=== PATIENT | female | born 1985 | race Caucasian/White ===

== ENCOUNTER 2018-05-05 18:05 | Outpatient (CLI) | payer MEDICAID | END 2018-05-05 22:55 | disposition home or self-care (01) | LOC: OBT 18:05 → L-D 18:10 → OBT 22:55 | DX: O26.893 Other specified pregnancy related conditions, third trimester (principal); Z3A.38 38 weeks gestation of pregnancy; R10.2 Pelvic and perineal pain | CPT/HCPCS: 76818 ==

== ENCOUNTER 2018-05-10 22:19 | Inpatient (IN) | payer MEDICAID ==
[2018-05-10] MEDS: LACTATED RINGER'S 1,000 ML IV (22:30)
[2018-05-10] MEDS ORDERED: IBUPROFEN 600 MG TAB PO (22:30)
[2018-05-10] MEDS ORDERED: LIDOCAINE 1% (MPF) 30 ML INJ INJ (22:30)
[2018-05-10] MEDS ORDERED: METHYLERGONOVINE 0.2 MG INJ IM (22:30)
[2018-05-10] MEDS ORDERED: BUTORPHANOL 2 MG INJ IV (22:30)
[2018-05-10] MEDS ORDERED: MISOPROSTOL 200 MCG TAB PR (22:30)
[2018-05-10] MEDS ORDERED: OXYTOCIN 30 UNITS/LR 500 ML IV ×2 (22:30)
[2018-05-10] MEDS ORDERED: CARBOPROST 250 MCG INJ IM (22:30)
[2018-05-10] MEDS: OXYTOCIN 30 UNITS/LR 500 ML IVPB (22:31)
[2018-05-10] MEDS ORDERED: MISOPROSTOL 200 MCG TAB (22:36)
[2018-05-10 22:45] LABS: ADD MAN DIFF? NO
[2018-05-10 22:51] LABS: BASOPHIL # 0.1 10^3/ul (0.0-0.1); BASOPHILS % 0.4 % (0.0-2.0); EOSINOPHILS % 0.1 % (0.0-7.0); HEMATOCRIT 38.7 % (37.0-47.0); HEMOGLOBIN 13.9 g/dl (12.0-16.0); LYMPHOCYTES # 2.3 10^3/ul (0.8-2.9); LYMPHOCYTES % 12.4 % (15.0-51.0); MEAN CORPUSCULAR HEMOGLOBIN 31.6 pg (29.0-33.0); MEAN CORPUSCULAR HGB CONC 35.9 g/dl (32.0-37.0); MONOCYTE # 1.1 10^3/ul (0.3-0.9); MONOCYTES % 6.1 % (0.0-11.0); NEUTROPHIL # 14.7 10^3/ul (1.6-7.5); PLATELET COUNT 246 10^3/UL (140-415); RED CELL DISTRIBUTION WIDTH 12.3 % (11.5-14.5)
[2018-05-10 22:51] LABS: WHITE BLOOD COUNT 18.3 10^3/ul (4.8-10.8)
[2018-05-10] MEDS: OXYTOCIN 30 UNITS/LR 500 ML IV (23:07)
[2018-05-10 23:13] LABS: CBV Base Excess -6.1 mmol/L; CBV COHb 1.9 %; CBV Oxygen Sat 61.8 mmHG; CBV Total Hemglobin 19.6 g/dl; Cord Blood Venous pO2 27.9 mmHG (15.0-45.0); MODE ROOM AIR; Sample Type Blood venous; Site CORD
[2018-05-10 23:14] LABS: AADO2 Cord Arterial 62.2 mmHg; Arterial Cord Blood pCO2 60.7 mmHG (25-50); CBA Base Excess -7.5 mmol/L; CBA COHb 0.6 %; CBA Oxygen Sat 24.3 mmHG; Cord Blood Arterial pO2 14.8 mmHG (15.0-45.0); Fraction OxyHgb Cord Arterial 23.8 %; MODE ROOM AIR; MetHgb Cord Arterial 1.5 %; Site CORD
[2018-05-10 23:15] LABS: INR 0.89; PARTIAL THROMBOPLASTIN TIME 25.7 Sec (23.0-35.0); PROTIME 12.2 Sec (11.9-14.9)
[2018-05-10 23:48] LABS: HEPATITIS B SURFACE ANTIGEN NEGATIVE (NEGATIVE)
[2018-05-11] MEDS ORDERED: LANOLIN HPA 1 PKT TOP
[2018-05-11] MEDS ORDERED: OXYTOCIN 30 UNITS/LR 500 ML IV
[2018-05-11] MEDS ORDERED: CARBOPROST 250 MCG INJ IM
[2018-05-11] MEDS ORDERED: ZOLPIDEM 5 MG TAB PO
[2018-05-11] MEDS ORDERED: NACL 0.9% 3 ML SYG IV
[2018-05-11] MEDS ORDERED: METHYLERGONOVINE 0.2 MG INJ IM
[2018-05-11] MEDS ORDERED: ONDANSETRON 4 MG INJ IV
[2018-05-11] MEDS ORDERED: HYDROCODONE/APAP (5/325) TAB PO
[2018-05-11] MEDS ORDERED: DIPHENHYDRAMINE 25 MG CAP PO
[2018-05-11] MEDS ORDERED: WITCH HAZEL/GLYCERIN PAD PR
[2018-05-11] MEDS: MISOPROSTOL 200 MCG TAB PR (01:12)
[2018-05-11] MEDS: OXYTOCIN 30 UNITS/LR 500 ML IV (02:52)
[2018-05-11] MEDS ORDERED: LIDOCAINE 1% (MPF) 30 ML INJ (05:01)
[2018-05-11 05:48] LABS: HEMATOCRIT 31.2 % (37.0-47.0)
[2018-05-11] MEDS: IBUPROFEN 600 MG TAB PO ×4 (06:07→17:54)
[2018-05-11] MEDS: ACETAMINOPHEN 325 MG TAB PO (06:08)
[2018-05-11] MEDS: SENNA/DOCUSATE NA (8.6MG/50MG) TAB PO ×3 (09:00→21:54)
[2018-05-11 21:21] LABS: RAPID PLASMA REAGIN NONREACTIVE (NR)
[2018-05-12] MEDS: IBUPROFEN 600 MG TAB PO ×3 (00:26→12:23)
[2018-05-12] MEDS: SENNA/DOCUSATE NA (8.6MG/50MG) TAB PO (09:00)
[2018-05-12] MEDS: MEASLES,MUMPS,RUBELLA VACCINE INJ SC* (09:00)
[2018-05-12] MEDS: VARICELLA VACCINE LIVE/PF 1,350 UNIT/0.5 ML ML SC* (09:00)
[2018-05-12] MEDS: DIPHTH/TET/ACEL PERTUSS (ADULT) 0.5 ML VIAL IM* (10:23)
== END 2018-05-12 15:26 | disposition home or self-care (01) | DRG 807 ==
LOC: OBT 22:19 → MS1 05-11 03:16 → L-D 22:20 → OBT 22:25 → L-D 22:25
PROVIDERS: Obstetrics & Gynecology
PROC: 10E0XZZ Delivery of Products of Conception, External Approach (ICD-10-PCS; principal; 2018-05-10)
PROC: 0KQM0ZZ Repair Perineum Muscle, Open Approach (ICD-10-PCS; 2018-05-10)
PROC: 3E033VJ Introduction of Other Hormone into Peripheral Vein, Percutaneous Approach (ICD-10-PCS; 2018-05-10)
DX: O70.1 Second degree perineal laceration during delivery (principal); Z37.0 Single live birth; O69.81X0 Labor and delivery complicated by cord around neck, without compression, not applicable or unspecified; O70.0 First degree perineal laceration during delivery; Z3A.38 38 weeks gestation of pregnancy
CPT/HCPCS: 36415; 36600; 82803; 85014; 85018; 85025; 85610; 85730; 86592; 86850; 86900; 86901; 87340; 88307; 90715; 99464